=== PATIENT | female | born 1935 | race Hispanic/Latino ===

== ENCOUNTER 2017-07-26 12:42 | Emergency (ER) | payer MEDICARE, OTHER ==
[~2017-07-26] VITALS: Ht 144.8 cm; Wt 57.3 kg
[~2017-07-26 12:42] MED LIST: ACYCLOVIR800 MG OR; ALBUTEROL0.083 % IN; AMOX/K CLAV875 M1 PO; BACTROBAN2 % EX; BENADRYL 50MG C50 MG OR; COMBIVENT IN; COUMADIN2 MG PO; D3 20002000 UNIT PO; FLOXIN OTIC0.3 % OT; GABAPENTIN300 MG OR; HYDRALAZINE10 MG PO; HYDROXYZ HCL25 MG OR; ISORDIL10 MG PO; LASIX 20 MG20 MG/TAB PO; LIPITOR10 M1 PO; LORTAB 10 PO; LORTAB 5 OR; LOVASTATIN40 MG; NITROSTAT0.4 MG SL; PERCOCET1 TA3 OR; PLAVIX75 MG PO; PROVENTIL IN; ROCALTROL0.25 MCG PO; SM ASPIRIN81 M1 OR; TENORMIN PO; ULTRAM50 M1 OR
[2017-07-26 14:06] LABS: HEMATOCRIT 38.6 % (37.0-47.0); HEMOGLOBIN 12.5 g/dl (12.0-16.0); IMMATURE GRANULOCYTES 0.6 % (0.0-1.0); MEAN CELL VOLUME 91.7 fL CALC (80.0-100.0); MEAN CORPUSCULAR HGB 29.7 pG CALC (26.0-32.0); MEAN CORPUSCULAR HGB CONC 32.4 g/L CALC (32.0-36.0); NEUT# 5.37 thou/uL (2.00-7.15); RED BLOOD COUNT 4.21 mill/uL (4.20-5.60); RED CELL DISTRI WIDTH 14.5 % (11.5-15.5)
[2017-07-26 14:23] LABS: ANION GAP 16 (6-22 (CALC)); BUN 61 mg/dL (8-23); BUN/CREATININE RATIO 24 (12-20 (CALC)); CARBON DIOXIDE 20 mmol/l (22-30); CHLORIDE 112 mmol/l (95-108); CREATININE 2.5 mg/dL (0.5-1.0); GFR 18 ML/MIN (>=60 (CALC)); GFR FOR AFR.AMER. 22 ML/MIN (>=60 (CALC)); SODIUM 143 mmol/l (137-146)
[2017-07-26 14:25] LABS: INTERNATIONAL NORMALIZED RATIO 1.9 RATIO (0.7-1.3); PROTHROMBIN TIME 21.8 SECONDS (9.0-12.5)
[2017-07-26 14:36] LABS: POTASSIUM 5.2 mmol/l (3.5-5.1)
[2017-07-26] MEDS ORDERED: TENORMIN25 MG PO (15:02)
[2017-07-26] MEDS ORDERED: ISOSORB DIN10 MG PO (15:02)
[2017-07-26] MEDS ORDERED: LASIX20 MG PO (15:03)
[2017-07-26] MEDS ORDERED: CALCITRIOL0.25 MC1 PO (15:03)
[2017-07-26] MEDS ORDERED: RANITIDINE150 M1 PO (15:04)
[2017-07-26] MEDS ORDERED: ATORVASTATIN CA10 MG PO (15:04)
[2017-07-26] MEDS ORDERED: ASPIRIN 81 LOW81 MG (15:05)
[2017-07-26] MEDS ORDERED: WARFARIN2 MG PO (15:05)
[2017-07-26] MEDS ORDERED: ULTRAM50 M1 PO (15:06)
[2017-07-26 16:37] VITALS: BP 168/74
== END 2017-07-26 16:38 | disposition short-term general hospital (02) ==
LOC: ED 12:42
PROVIDERS: Family Medicine
DX: S06.2X0A Diffuse traumatic brain injury without loss of consciousness, initial encounter (principal); W06.XXXA Fall from bed, initial encounter; Y92.003 Bedroom of unspecified non-institutional (private) residence as the place of occurrence of the external cause; R42 Dizziness and giddiness; R07.9 Chest pain, unspecified; I10 Essential (primary) hypertension; Z95.0 Presence of cardiac pacemaker; Z79.01 Long term (current) use of anticoagulants; R07.81 Pleurodynia; R55 Syncope and collapse
CPT/HCPCS: J1953

== ENCOUNTER → 2018-05-21 | Outpatient (REF) | payer MEDICARE, OTHER ==
[~2018-05-21] MED LIST changes: +ASPIRIN 81 LOW81 MG; +ATORVASTATIN CA10 MG PO; +CALCITRIOL0.25 MC1 PO; +ISOSORB DIN10 MG PO; +LASIX20 MG PO; +RANITIDINE150 M1 PO; +TENORMIN25 MG PO; +ULTRAM50 M1 PO; +WARFARIN2 MG PO
[2018-05-21 10:26] LABS: HEMATOCRIT 42.2 % (37.0-47.0); HEMOGLOBIN 13.4 g/dl (12.0-16.0); IMMATURE GRANULOCYTES 0.3 % (0.0-5.0); MEAN CELL VOLUME 91.9 fL CALC (80.0-100.0); MEAN CORPUSCULAR HGB 29.2 pG CALC (26.0-32.0); MEAN CORPUSCULAR HGB CONC 31.8 g/L CALC (32.0-36.0); NEUT# 3.59 thou/uL (2.00-7.15); RED BLOOD COUNT 4.59 mill/uL (4.20-5.60); RED CELL DISTRI WIDTH 13.9 % (11.5-15.5)
[2018-05-21 10:43] LABS: ALBUMIN 3.8 g/dL (3.2-5.0); CREATININE 2.6 mg/dL (0.5-1.0); POTASSIUM 4.9 mmol/l (3.5-5.1)
== END | disposition home or self-care (01) ==
LOC: CT 09:42
PROVIDERS: Internal Medicine Nephrology; ATTEND Internal Medicine
DX: R51 Headache (principal); Z87.820 Personal history of traumatic brain injury; E55.9 Vitamin D deficiency, unspecified; E78.5 Hyperlipidemia, unspecified; E83.40 Disorders of magnesium metabolism, unspecified; E87.5 Hyperkalemia; D64.9 Anemia, unspecified; I10 Essential (primary) hypertension; N17.9 Acute kidney failure, unspecified; N18.4 Chronic kidney disease, stage 4 (severe); N28.1 Cyst of kidney, acquired; R80.9 Proteinuria, unspecified

== ENCOUNTER 2018-07-28 09:26 | Emergency (ER) | payer MEDICARE, OTHER ==
[~2018-07-28] VITALS: Ht 144.8 cm; Wt 56.0 kg
[2018-07-28 10:36] VITALS: BP 124/59
== END 2018-07-28 10:43 | disposition home or self-care (01) ==
LOC: ED 09:26
DX: S81.811A Laceration without foreign body, right lower leg, initial encounter (principal); W22.8XXA Striking against or struck by other objects, initial encounter; Y92.009 Unspecified place in unspecified non-institutional (private) residence as the place of occurrence of the external cause

== ENCOUNTER 2019-03-12 | Emergency (ER) | payer MEDICARE, OTHER | END 2019-03-12 13:04 | disposition home or self-care (01) | DX: S80.02XA Contusion of left knee, initial encounter (principal); I10 Essential (primary) hypertension; I48.91 Unspecified atrial fibrillation; W01.0XXA Fall on same level from slipping, tripping and stumbling without subsequent striking against object, initial encounter; Z95.0 Presence of cardiac pacemaker ==

== ENCOUNTER 2020-09-17 21:25 | Inpatient (IN) | payer MEDICARE, OTHER ==
[~2020-09-17] VITALS: Ht 144.8 cm; Wt 60.1 kg
[2020-09-17 22:03] LABS: HEMATOCRIT 42.9 % (37.0-47.0); HEMOGLOBIN 13.2 g/dl (12.0-16.0); IMMATURE GRANULOCYTES 0.2 % (0.0-5.0); MEAN CELL VOLUME 95.3 fL CALC (80.0-100.0); MEAN CORPUSCULAR HGB 29.3 pG CALC (26.0-32.0); MEAN CORPUSCULAR HGB CONC 30.8 g/dL CAL (32.0-36.0); NEUT# 7.5 thou/uL (2.00-7.15); RED BLOOD COUNT 4.5 mill/uL (4.20-5.60); RED CELL DISTRI WIDTH 15.6 % (11.5-15.5)
--- NOTE | 2020-09-17 22:06 | NUR ---
BREATHING TREATMENT GIVEN BACK TO BACK.
[2020-09-17 22:18] LABS: ALBUMIN 3.8 g/dL (3.2-5.0); ALKALINE PHOSPHATASE 124 u/l (38-126); ANION GAP 20 (6-22 (CALC)); BILIRUBIN, TOTAL 0.5 mg/dL (0.0-1.4); BUN 79 mg/dL (8-23); BUN/CREATININE RATIO 18 (12-20 (CALC)); CARBON DIOXIDE 13 mmol/l (22-30); CHLORIDE 109 mmol/l (95-108); CREATININE 4.4 mg/dL (0.5-1.0); GFR 10 ML/MIN (>=60 (CALC)); GFR FOR AFR.AMER. 12 ML/MIN (>=60 (CALC)); POTASSIUM 5.8 mmol/l (3.5-5.1); SGOT/AST 35 u/l (9-36); SODIUM 136 mmol/l (137-146); TOTAL PROTEIN 7.1 g/dL (6.3-8.2)
[2020-09-17 22:20] LABS: INTERNATIONAL NORMALIZED RATIO 1.6 RATIO (0.7-1.3)
[2020-09-17 22:30] LABS: MYOGLOBIN 139 ng/mL (0 - 62)
--- NOTE | 2020-09-17 22:30 | NUR ---
RECEIVED PATIENT WITH CARDIZEM DRIP 5MG/HR HR 82 A-FIB.
--- NOTE | 2020-09-17 23:12 | NUR ---
AWAITING URINE SAMPLE. DAUGHTER AT BEDSIDE. UPDATED WITH PLAN OF CARE
--- NOTE | 2020-09-17 23:54 | NUR ---
REPORT GIVEN TO DANIAL OZUNA . PATIENT BEING ADMITTED TO ICU 6. PT WITH AUDIBLE EXPIRATORY WHEEZE INCREASED WORK OF BREATHING NOTED. ED PHYSICIAN NOTIFIED. RT CALLED FOR TREATMENT.
[2020-09-18] VITALS (14 sets, daily range): BP systolic 107–171; BP diastolic 56–87
--- NOTE | 2020-09-18 00:20 | NUR ---
NEB TX COMPLETE. DECREASED WHEEZING NOTED. UNABLE TO GIVE ADMIT ORDER OF LASIX DUE TO AWAITING PHARMACY TO PROFILE PER HARDWARE TRAINER, ORAL. MED TO BE GIVEN IN ICU. PATIENT BEING TRANSPORTED BY THIS RN ON MONITOR.
--- NOTE | 2020-09-18 00:30 | NUR ---
85 yr old turkmen female admitted to icu6 per stretcher from er. transferred x3 to bed. bed weight obtained. sob with any exert. o2 cont per nc. high fowlers position. cardiac cath lab manager shows a fib pvcs paced beats. #20 lac cardizem gtt infusing @ 5mg hr. histoy obtained per er record & old chart. oriented to room. pure wick cath place. has not voided. bed alarm activated.
--- NOTE | 2020-09-18 02:00 | NUR ---
eyes closed. no apparent resp diff. monitor tech shows a fib pvcs paced beats hr 88.
--- NOTE | 2020-09-18 03:30 | NUR ---
lab here. blood drawn. tech translated to pt the use of pure wick. pt verbalized understanding. no urine output.
[2020-09-18 03:52] LABS: HEMATOCRIT 39.4 % (37.0-47.0); HEMOGLOBIN 12.4 g/dl (12.0-16.0); IMMATURE GRANULOCYTES 0.4 % (0.0-5.0); MEAN CELL VOLUME 94.5 fL CALC (80.0-100.0); MEAN CORPUSCULAR HGB 29.7 pG CALC (26.0-32.0); MEAN CORPUSCULAR HGB CONC 31.5 g/dL CAL (32.0-36.0); NEUT# 10.36 thou/uL (2.00-7.15); RED BLOOD COUNT 4.17 mill/uL (4.20-5.60); RED CELL DISTRI WIDTH 15.4 % (11.5-15.5)
[2020-09-18 04:03] LABS: CREATININE 4.5 mg/dL (0.5-1.0)
[2020-09-18 04:15] LABS: POTASSIUM 5.3 mmol/l (3.5-5.1)
--- NOTE | 2020-09-18 05:00 | NUR ---
pt removed pure wick cath. has not voided. #16 blanton inserted. 100cc urine obtained. urine spec collected & sent to lab.
[2020-09-18 05:48] LABS: URINE BILIRUBIN - DIPSTICK NEGATIVE (NEGATIVE); URINE BLOOD DIPSTICK SMALL (NEGATIVE); URINE COLOR YELLOW; URINE GLUCOSE - DIPSTICK NEGATIVE (NEGATIVE); URINE KETONE NEGATIVE (NEGATIVE); URINE PROTEIN - DIPSTICK 100 mg/dL (NEG-TRACE); URINE SPECIFIC GRAVITY 1.025; URINE UROBILINOGEN - DIPSTICK 0.2 E.U./dL (0.2)
[2020-09-18 05:53] LABS: URINE LEUK ESTERASE SMALL (NEGATIVE); URINE NITRITE - DIPSTICK NEGATIVE (Negative)
[2020-09-18 05:55] LABS: URINE BACTERIA MANY hpf; URINE SQUAMOUS EPITHELIAL CELL FEW EPI/hpf (0-FEW); URINE WBC 50-100 WBC/hpf (0-5)
--- NOTE | 2020-09-18 06:10 | NUR ---
awake. sob with exertion. hob remains elevated. rt notified
--- NOTE | 2020-09-18 09:16 | NUR ---
UPON INITIAL ASSESSMENT, PT WAS SEEN TO BE LABORED IN HER RESPIRATIONS, UPPER RESPIRATORY AUDIBLE. RESPIRATORY THERAPIST WAS CALLED, ABG DONE, ULTIMATELY PT REQUIRED BIPAP. PT ALSO HAD CT OF ABDOMEN. AT THIS TIME, PT IS RESTING COMFORTABLY IN THE BED, BIPAP IN PLACE, SATS NOW IN UPPER 90s. DR LAU HAS BEEN UPDATED AND INVOLVED EACH STEP.
[2020-09-18] MEDS ORDERED: NORVASC2.5 M1 PO (10:26)
[2020-09-18] MEDS ORDERED: ALLOPURINOL100 MG PO (10:27)
--- NOTE | 2020-09-18 12:00 | NUR ---
PT DOING WELL ON BIPAP, SEEN AT REST IN THE BED WITH SATS IN THE UPPER 90s. TWO DAUGHTERS HAVE VISITED SEPARATELY. NO SHORTNESS OF BREATH, NO CHEST PAIN. PT DOES BECOME LABORED BREATHING WHEN SHE USES BSC WITH ONLY NASAL CANNULA.
[2020-09-18 17:57] LABS: ACT PARTIAL THROMBO TIME 24.7 SECONDS (20.0-32.5); INTERNATIONAL NORMALIZED RATIO 1.8 RATIO (0.7-1.3); PROTHROMBIN TIME 17.8 SECONDS (9.0-12.5)
--- NOTE | 2020-09-18 19:35 | NUR ---
PATIENT IS AWAKE, ORIENTED X2. ANSWERS QUESTIONS APPROPRIATELY. ASKS IF SHE WILL BE SPENDING THE NIGHT, EXPLAINED POC, IS ON BIPAP. RESP RATE 24 AND SPO2 96%-99%. NO ACUTE DISTRESS SHOWN. CALL LIGHT WITHIN REACH.
--- NOTE | 2020-09-18 20:46 | NUR ---
PATIENT WAS PULLED X2 MAX ASSIST DUE TO LAYING TO DOWN ON THE BED.
--- NOTE | 2020-09-18 21:08 | NUR ---
PATIENT LAYS IN HIGH BARAJAS'S. NO ACUTE DISTRESS SHOWN. NO COMPLAINTS OF PAIN. SPO2 100%. NO RESPIRATORY DISTRESS NOTED. CALL LIGHT WITHIN REACH.
--- NOTE | 2020-09-18 21:23 | NUR ---
SIP OF WATER PROVIDED PER REQUEST, ABLE TO SIP WATER WITHOUT DIFFICULTY. DENIES NAUSEA AT THIS TIME.
--- NOTE | 2020-09-18 22:06 | NUR ---
PATIENT ABLE TO SWALLOW COUMADIN 2 MG WITHOUT IDFFICULTY. PLACED BACK ON BIPAP MASK. PT REPEATEDLY REPORTS IF SHE WILL BE SPENDING THE NIGHT HERE, WHERE ARE HE DAUGHTERS, PT RE DIRECTED EACH TIME.
--- NOTE | 2020-09-18 23:00 | NUR ---
PT'S DAUGHTER CALLED HERE, TORIBIO, PROVIDED PASSCODE. UPDATES GIVEN, ALSO LET HER KNOW PT IS BECOMING RESTLESS. DAUGHTER REPORTS PT HAS NEVER STAYED IN THE HOSPITAL BY HERSELF, HER DAUGHTER HAS STAYED WITH HER OVER NIGHT BEFORE. REPORTS IT HAS HAPPENED IN THE PAST WHEN PT WAS AT A GROUP HOME, DAUGHTER WAS CHEN DIN TO STAY THE NIGHT DUE TO PATIENT BECAME RESTLESS AND STARTED TO PULL OFF THINGS. DAUGHTER REPORTS PT REPORTED TO HER EARLIER WHEN SHE WAS HERE SHE NEEDED TO REPOSITION FROM SIDE TO SIDE. I NOTIFIED DAUGHTER I WILL REPOSITION THROUGH THE NIGHT AND NOTIFIED IF PT BECOMES RESTLESS I WILL NOTIFY INDUCTION COORDINATION POWER ENGINEER FOR OTHER ALTERNATIVE.
[2020-09-19] VITALS (17 sets, daily range): BP systolic 95–142; BP diastolic 52–82
--- NOTE | 2020-09-19 00:26 | NUR ---
CALLED EDMUND TO NOTIFY EKG ORDERED DUE TO PT HR 120'S-150.
--- NOTE | 2020-09-19 00:40 | NUR ---
CALLED AND SPOKE TO Julissa LANGLEY APRN REGARDING EKG TAKEN READS ATRIAL FIBRILLATION RVR, HR 120'S-150 BPM. NEW ORDERS RECEIVED AND FAXED STAT TO .
--- NOTE | 2020-09-19 01:08 | NUR ---
CARDIZEM 10 MG IV PUSH GIVEN, WILL CONTINUE TO MONITOR, HR LOW 100'S NOW. PATIENT REPORTS SHE FEELS COMFORTABLE LAYING ON HER RIGHT SIDE.
--- NOTE | 2020-09-19 03:05 | NUR ---
PATIENT REMOVES BIPAP MASK, REPORTS SHE DOES NOT WANT IT ON ANYMOORE. PLACED ON 2 L/MIN NC, O2 SATS 94%, RESP RATE 20-24, SHALLOW. WILL CONTINUE TO MONITOR.
--- NOTE | 2020-09-19 04:45 | NUR ---
RT EDMUND NOTIFIED PATIENT SOUNDS WHEEZY AND IS SOB, NEEDS BRETHING TX PRN.
--- NOTE | 2020-09-19 05:05 | NUR ---
RT AT BEDSIDE PROVIDING BREATHING TX.
--- NOTE | 2020-09-19 05:40 | NUR ---
PROVIDED AM IV MEDICATIONS. PATIENT LAYS IN HIGH BARAJAS'S, BREATHING NOT LABORED AFTER APPLYING BIPAP BACK ON. PATIENT CALMER.
[2020-09-19 06:35] LABS: HEMATOCRIT 37.2 % (37.0-47.0); MEAN CELL VOLUME 92.3 fL CALC (80.0-100.0); MEAN CORPUSCULAR HGB 29.8 pG CALC (26.0-32.0); MEAN CORPUSCULAR HGB CONC 32.3 g/dL CAL (32.0-36.0); RED BLOOD COUNT 4.03 mill/uL (4.20-5.60); RED CELL DISTRI WIDTH 15.7 % (11.5-15.5)
[2020-09-19 06:40] LABS: INTERNATIONAL NORMALIZED RATIO 1.8 RATIO (0.7-1.3); PROTHROMBIN TIME 18.4 SECONDS (9.0-12.5)
[2020-09-19 06:49] LABS: MAGNESIUM 2.2 mg/dL (1.6-2.3); POTASSIUM 5.1 mmol/l (3.5-5.1)
--- NOTE | 2020-09-19 08:00 | NUR ---
PT RESTLESS IN THE BED, ATTEMPTS TO GET OOB OFTEN. PT IS ETHIOPIAN ONLY, BUT STILL DOES NOT FOLLOW DIRECTIONS PROVIDED IN ETHIOPIAN. HR REMAINS ELEVATED IN THE 120-140 RANGE, DR LAU AWARE AND MED JORGE. JEM. CLEAR LUNGS WHEN NOT WHEEZING FROM EXERTION. PT ON BIPAP, BUT ON NASAL CANNULA FOR MEALS. SATS 100% BUT DROP TO HIGH 80s WHEN SHE REMOVES OXYGEN.
--- NOTE | 2020-09-19 15:32 | NUR ---
PT FOUND OFF BIPAP, PLACED BACK ON BIPAP DUE TO INCREASED WORK OF BREATNING AND DECREASED SPO2. DANIAL [place] AWARE.
--- NOTE | 2020-09-19 16:38 | NUR ---
PT FAMILY HAS BEEN AT BEDSIDE THROUGHOUT THE AFTERNOON, VERY HELPFUL IN KEEPING PT ORIENTED AND FROM PULLING AT TUBES. PT REMAINS IN AFIB, RATE IN 120-130 RANGE.
--- NOTE | 2020-09-19 17:56 | NUR ---
ORDER RECEIVED FROM DR SID SHERMAN FOR CARDIZEM DRIP, HR REMAINS 110-130 AFB. DAUGHTER REMAINS AT BEDSIDE, PT APPEARS COMFORTABLE WITH DAUGHTER NEARBY.
--- NOTE | 2020-09-19 21:31 | NUR ---
PATIENT WAS PULLED UP, SAT IN HIGH BARAJAS'S, BIPAP MASK TAKEN OFF AT 0, PLACED ON 3 L/MIN NC, O2 SAT 93%-94%, RESP RATE 20. WAS ABLE TO SWALLOW MEDICATION. TOOK A SIP OF APPLE JUICE. WAS OFFERED JELLO, REFUSED AT THIS TIME. DAUGHTER AT BEDSIDE TO ASSIST.
--- NOTE | 2020-09-19 22:01 | NUR ---
PATIENT CONTINUES TO LAY IN HIGH BARAJAS'S POSITIONS, ON 3 L/MIN NC, SPO2 93%, RESP RATE 19. CONVERSATES WITH HER DAUGHTER AND ON A VIDEO CALL.
--- NOTE | 2020-09-19 23:56 | NUR ---
PATIENT IS AWAKE, REPORTS SHE IS HUNGRY, TURKEY SANDWICH OFFERED, ACCPETS. WAS PULLED UP AND IS NOW BEING ASSISTED BY DAUGHTER. 90%-93% ON 3 L/MIN NC. BED ALRM ON WELL.
[2020-09-20] VITALS (17 sets, daily range): BP systolic 85–161; BP diastolic 50–105
--- NOTE | 2020-09-20 01:02 | NUR ---
PATIENT WAS ASSISTED TO BS. PT ABLE TO TRANSFER TO BS, HAS UNSTEADY GAIOT. WAS ABLE TO WIPE HERSELF. HAD SMALL/HARD BROWN BM. SHORTYLY AFTER LAYING BACK IN BED SHE DEVELOPED BILATERAL GROIN PAIN. TYLENOL PROVIDED. PT NOW LAYS ON HER R-SIDE. CARDIZEM DRIP AT 5 MG/HR. HR 70'S -80'S. ON 3 L/MN NC SPO2 94%. DOES BECOME SOB WITH EXERTION OR CONVERSATING. WILL CONTINUE TO MONITOR.
--- NOTE | 2020-09-20 01:31 | NUR ---
PATIENT PLACED BACK ON BIPAP, FIO2 60% DUE TO SHALLOW/RAPID BREATHING, SHE HAD ALSO TAKEN HER NASAL CANNULA OFF, SPO2 89%. SPO2 WITH BIPAP 100%, RESP RATE 21. WILL CONTINUE TO MONITOR.
--- NOTE | 2020-09-20 05:17 | NUR ---
PT REPOSITIONED FOR PORTABLE CXR, HIGHWAY ENGINEERING TECHNICIAN IN ROOM TO DRAW BLOOD NOW.
--- NOTE | 2020-09-20 05:33 | NUR ---
RT EDMUND IN ROOM FOR ABG DUE THIS AM
--- NOTE | 2020-09-20 05:36 | NUR ---
PATIENT ASSISTED TO COMFORTABLE POSITION, REMAINS ON BIPAP, FIO2 60%. DAUGHTER AT BEDSIDE. NO COMPLAINTS OR NEEDS AT THIS TIME. CALL LIGHT WITIN REACH.
[2020-09-20 05:40] LABS: HEMATOCRIT 36.2 % (37.0-47.0); HEMOGLOBIN 11.6 g/dl (12.0-16.0); MEAN CELL VOLUME 94.8 fL CALC (80.0-100.0); MEAN CORPUSCULAR HGB 30.4 pG CALC (26.0-32.0); RED BLOOD COUNT 3.82 mill/uL (4.20-5.60); RED CELL DISTRI WIDTH 16.6 % (11.5-15.5)
[2020-09-20 06:13] LABS: ALBUMIN 3.3 g/dL (3.2-5.0)
[2020-09-20 06:16] LABS: ACT PARTIAL THROMBO TIME 28.1 SECONDS (20.0-32.5)
[2020-09-20 06:24] LABS: INTERNATIONAL NORMALIZED RATIO 2.7 RATIO (0.7-1.3); PROTHROMBIN TIME 26.5 SECONDS (9.0-12.5)
[2020-09-20 06:30] LABS: CREATININE 5.9 mg/dL (0.5-1.0); POTASSIUM 5.3 mmol/l (3.5-5.1)
--- NOTE | 2020-09-20 08:16 | NUR ---
PT SEEN AAWAKE, ALERT, ORIENTED X 2. LUNGS CLEAR, USES BIPAP MOSTLY AND NC 2 LPM WHEN EATING OR NEEDING A BREAK FROM BIPAP. DAUGHTER GRAYSON IS AT BEDSIDE, HELPFUL IN REORIENTATION OF PT. CARDIZEM CONTINUES AT 10 MG/HR, HR AFB IN THE 80s. NO DISTRESS, NO COMPLAINTS.
--- NOTE | 2020-09-20 10:03 | NUR ---
PT SEEN BY DR LAU THIS MORNING. PLAN IS TO TRANSFER PT TO [facility] FOR PROBABLE DIALYSIS PER ARF. FAMILY EDUCATED ON NEED FOR SAME. PT REMAINS ON CARDIZEM DRIP FOR AFB, HR CONTROLLED AT 80-90. PARISH REMAINS IN PLACE WITH OUTPUT MINIMAL.
--- NOTE | 2020-09-20 13:12 | NUR ---
PT SEEN BY FAMILY MEMBERS PRIOR TO TRANSFER TO [facility]. PT UP TO CHAIR AT THIS TIME, INTERACTIVE WITH FAMILY. CARDIZEM DRIP CONTINUES AND BIPAP IS USED ALTERNATELY WITH NASAL CANNULA.
--- NOTE | 2020-09-20 18:00 | NUR ---
PT AND FAMILY AWARE OF PENDING TRANSFER TO [facility] TONIGHT. PT ASSISTED BACK TO BED, BIPAP PLACED PER WHEEZING. HR REMAINS AFIB, CARDIZEM CONTINUES AT 10 MG/HR.
--- NOTE | 2020-09-20 19:20 | NUR ---
REPORT HAS BEEN CALLED TO SKYLAR BARROW AT [facility]. PT READIED FOR TRANSFER TO [facility]. DAUGHTER AT BEDSIDE WILL STAY UNTIL [facility] ARRIVES.
--- NOTE | 2020-09-20 20:30 | NUR ---
[place] here. report given.
--- NOTE | 2020-09-20 20:55 | NUR ---
[facility] left.
== END 2020-09-20 20:55 | disposition short-term general hospital (02) | DRG 291 ==
LOC: ED 21:25 → ED-I 23:16 → ED 23:58 → ICU 23:59
PROVIDERS: Family Medicine; Hospitalist; Internal Medicine Nephrology; ADMIT Internal Medicine; ATTEND Internal Medicine
PROC: 5A09357 Assistance with Respiratory Ventilation, Less than 24 Consecutive Hours, Continuous Positive Airway Pressure (ICD-10-PCS; principal; 2020-09-18)
DX: I13.0 Hypertensive heart and chronic kidney disease with heart failure and stage 1 through stage 4 chronic kidney disease, or unspecified chronic kidney disease (principal); J96.02 Acute respiratory failure with hypercapnia; J96.01 Acute respiratory failure with hypoxia; N17.9 Acute kidney failure, unspecified; E87.2 Acidosis; N18.4 Chronic kidney disease, stage 4 (severe); J45.901 Unspecified asthma with (acute) exacerbation; I50.9 Heart failure, unspecified; I25.10 Atherosclerotic heart disease of native coronary artery without angina pectoris; E78.5 Hyperlipidemia, unspecified; I48.0 Paroxysmal atrial fibrillation; I95.9 Hypotension, unspecified; R82.71 Bacteriuria; Z95.0 Presence of cardiac pacemaker; Z95.5 Presence of coronary angioplasty implant and graft; Z86.73 Personal history of transient ischemic attack (TIA), and cerebral infarction without residual deficits; Z87.891 Personal history of nicotine dependence; Z20.822 Contact with and (suspected) exposure to COVID-19
CPT/HCPCS: J1644